=== PATIENT | male | born 1995 | race Caucasian/White ===

== ENCOUNTER 2022-02-19 12:07 | Emergency (ER) | payer OTHER ==
[~2022-02-19] VITALS: Ht 180.3 cm; Wt 70.3 kg
[2022-02-19] MEDS ORDERED: KLONOPIN2 MG PO (12:24)
--- NOTE | 2022-02-20 07:13 | EKG ---
[facility] [address] [facility] [place] [address] Signed Normal sinus rhythm with sinus arrhythmia Normal ECG No previous ECGs available Confirmed by RAS SHANNON MD ([id number] on 02/20/2022 7:13:25 AM Electronically Signed By: RAS SHANNON MD 02/20/22712 PATIENT NAME: CHELO ROACH Electrocardiogram DATE OF : [birth year] PHYSICIAN: RAS SHANNON MD REPORT #: [id number] REPORT IS CONFIDENTIAL AND NOT TO BE RELEASED WITHOUT AUTHORIZATION
== END 2022-02-19 13:26 | disposition left against medical advice (07) ==
LOC: ED 12:07
DX: Z53.21 Procedure and treatment not carried out due to patient leaving prior to being seen by health care provider (principal)
CPT/HCPCS: 36415; 71045; 80053; 83735; 84484; 85025; 93005; 93010